=== PATIENT | male | born 1970 | race Caucasian/White ===

== ENCOUNTER 2018-11-28 06:10 | Inpatient (IN) | payer OTHER ==
[~2018-11-28] VITALS: Ht 177.8 cm; Wt 112.7 kg
[~2018-11-28 06:10] MED LIST: CELE200 PO; CYCL10 PO; CeFAZolin 2 GM/DEXTROSE 50 ML IV ONE; DONE5TAB5 PO; GABA-531 PO; HYDR-4455 PO; IBUP-2071 PO; RINGERS SOLUTION,LACTATED 1,000 ML IV ONE; TOPI25 PO; TRAM50TA4 PO
[2018-11-28 06:48] LABS: BASOPHILS % (AUTO) 0.9 % (0.0-2.0); HEMATOCRIT 41.4 % (41-53); LYMPHOCYTES # (AUTO) 1.6 K/uL (1.0-4.8); LYMPHOCYTES % (AUTO) 29.1 % (22.0-44.0); MEAN CORPUSCULAR HEMOGLOBIN 30.9 pg (26.0-34.0); MEAN CORPUSCULAR HGB CONC 33.9 G/dL (31.0-37.0); MEAN CORPUSCULAR VOLUME 91 fL (80-100); MONOCYTES # (AUTO) 0.6 K/uL (0.1-1.0); MONOCYTES % (AUTO) 10.9 % (2.0-9.0); NEUTROPHILS # (AUTO) 3.2 K/uL (1.8-7.7); NEUTROPHILS % (AUTO) 57.1 % (40.0-70.0); PLATELET COUNT (AUTO) 248 K/uL (150-450); RED BLOOD CELL COUNT(AUTO) 4.54 MIL/uL (4.50-5.90); RED CELL DISTRIBUTION WIDTH 13.2 % (11.5-14.5)
[2018-11-28 07:00] LABS: ANION GAP 8 mmol/L (8-16); CALCIUM, TOTAL 9.7 mg/dL (8.8-10.5); CARBON DIOXIDE 29 mmol/L (22-29); CHLORIDE 102 mmol/L (98-107); CREATININE 1.04 mg/dL (0.60-1.30); GLOMERULAR FILTR. RATE CALC > 60 mL/min (>60); GLUCOSE,RANDOM 103 mg/dL (70-110); SODIUM SERUM 139 mmol/L (136-145); UREA NITROGEN, BLOOD 20 mg/dL (7-18)
[2018-11-28] MEDS ORDERED: CeFAZolin 2 GM/DEXTROSE 50 ML IV ONE (07:00)
[2018-11-28] MEDS ORDERED: SODIUM CHLORIDE 0.9% 1,000 ML IV SCH (07:00)
[2018-11-28 07:11] LABS: PROTHROMBIN TIME 10.1 SEC (9.4-11.6)
[2018-11-28] MEDS ORDERED: BENZOCAINE/MENTHOL LOZENGE PO PRN (08:30)
[2018-11-28] MEDS ORDERED: DiphenhydrAMINE HCL 50 MG/ML VIAL IVP PRN (08:30)
[2018-11-28] MEDS ORDERED: ZOLPIDEM TARTRATE 10 MG TABLET PO PRN (08:30)
[2018-11-28] MEDS ORDERED: DEXAMETHASONE SOD PHOS 4 MG/ML VIAL IVP PRN (08:30)
[2018-11-28] MEDS ORDERED: MAG HYDROX/AL HYDROX/SIMETH 30 ML SUSP UDCUP PO PRN (08:30)
[2018-11-28] MEDS ORDERED: ONDANSETRON HCL 4 MG/2 ML VIAL IVP PRN ×2 (08:30→09:00)
[2018-11-28] MEDS ORDERED: BUPIVACAINE LIPOSOME/PF 1.3%-13.3MG/ML SUSPENSION 20 ML VIAL INJ ONE (08:45)
[2018-11-28] MEDS ORDERED: MEPERIDINE-PF 25 MG/ML VIAL IVP PRN (09:00)
[2018-11-28] MEDS ORDERED: FentaNYL CITRATE-PF 100 MCG/2 ML VIAL IVP PRN (09:00)
[2018-11-28] MEDS: DOCUSATE SODIUM 100 MG CAPSULE PO SCH ×2 (09:00→19:40)
[2018-11-28] MEDS ORDERED: HYDROmorphone 2 MG/ML SYRINGE IVP PRN (09:00)
[2018-11-28] MEDS ORDERED: SUGAMMADEX SODIUM 200 MG/2 ML VIAL IVP ONE (09:29)
[2018-11-28] MEDS ORDERED: HYDROmorphone 2 MG/ML SYRINGE ONE (10:44)
[2018-11-28] MEDS: HYDROmorphone 2 MG/ML SYRINGE IVP PRN ×4 (11:18→22:54)
[2018-11-28 11:48] VITALS: BP 143/87
[2018-11-28] MEDS: ACETAMINOPHEN 1000 MG/ISO-OSM 100 ML IV SCH ×2 (13:33→19:39)
[2018-11-28] MEDS: CYCLOBENZAPRINE HCL 10 MG TABLET PO PRN (13:57)
[2018-11-28 15:39] VITALS: BP 123/66
[2018-11-28] MEDS ORDERED: OXYGEN THERAPY IH SCH (20:00)
[2018-11-28 20:14] VITALS: BP 129/68
[2018-11-28 22:56] VITALS: BP 129/67
[2018-11-29] MEDS: ACETAMINOPHEN 1000 MG/ISO-OSM 100 ML IV SCH (01:53)
[2018-11-29] MEDS: HYDROmorphone 2 MG/ML SYRINGE IVP PRN (04:23)
[2018-11-29 04:25] VITALS: BP 115/66
[2018-11-29] MEDS ORDERED: PROPOFOL 1% 20 ML VIAL IVP ONE (06:14)
[2018-11-29] MEDS ORDERED: MIDAZOLAM HCL 2 MG/2 ML VIAL IVP ONE (06:14)
[2018-11-29] MEDS ORDERED: KETAMINE HCL 50 MG/ML 10 ML VIAL IVP ONE (06:14)
[2018-11-29] MEDS ORDERED: ONDANSETRON HCL 4 MG/2 ML VIAL IVP ONE (06:14)
[2018-11-29] MEDS ORDERED: LIDOCAINE/PF 2% 5 ML VIAL IM ONE (06:14)
[2018-11-29] MEDS ORDERED: DEXAMETHASONE SOD PHOS 4 MG/ML VIAL IVP ONE (06:14)
[2018-11-29] MEDS ORDERED: FentaNYL CITRATE-PF 250 MCG/5 ML VIAL IVP ONE (06:14)
[2018-11-29] MEDS ORDERED: SUCCINYLCHOLINE CHLORIDE 20 MG/ML 10 ML VIAL IVP ONE (06:14)
[2018-11-29] MEDS ORDERED: ROCURONIUM BROMIDE 10 MG/ML 5 ML VIAL IVP ONE (06:14)
[2018-11-29 07:14] VITALS: BP 123/64
[2018-11-29] MEDS ORDERED: HYDROCODONE/ACETAMINOPHEN 10-325 MG TABLET PO PRN (08:05)
[2018-11-29] MEDS: DOCUSATE SODIUM 100 MG CAPSULE PO SCH (08:27)
[2018-11-29] MEDS: CYCLOBENZAPRINE HCL 10 MG TABLET PO PRN (08:27)
[2018-11-29] MEDS ORDERED: DONEPEZIL HCL 5 MG TABLET PO SCH (09:00)
[2018-11-29] MEDS ORDERED: TraMADol HCL 50 MG TABLET PO SCH (09:00)
[2018-11-29] MEDS ORDERED: TOPIRAMATE 25 MG TABLET PO SCH (09:00)
[2018-11-29] MEDS ORDERED: GABAPENTIN 300 MG CAPSULE PO SCH (09:00)
== END 2018-11-29 11:53 | disposition home or self-care (01) | DRG 473 ==
LOC: 4E 06:10
PROVIDERS: ADMIT Orthopaedic Surgery Orthopaedic Surgery of the Spine; ATTEND Orthopaedic Surgery Orthopaedic Surgery of the Spine
PROC: 0RG10J0 Fusion of Cervical Vertebral Joint with Synthetic Substitute, Anterior Approach, Anterior Column, Open Approach (ICD-10-PCS; 2018-11-28)
PROC: 0RB30ZZ Excision of Cervical Vertebral Disc, Open Approach (ICD-10-PCS; principal; 2018-11-28 07:30)
DX: M54.2 Cervicalgia (principal)
CPT/HCPCS: 87081; 93005; 97161; 97165; C9290; G0238; G0378; J0131; J0330; J0690; J1100; J1170; J2250; J2405; J2704; J3010; J3490; J7030; J7120